=== PATIENT | male | born 1975 | race African-American/Black ===

== ENCOUNTER 2023-12-11 15:52 | Emergency (ER) | payer OTHER, SELFPAY ==
--- NOTE | 2023-12-11 17:25 | ER ---
Nurse's Notes [facility] Name: Brian Rodríguez Age: 48 yrs Sex: Male : 1975 Arrival Date: 12/11/2023 Time: 15:52 Bed IW10 Private MD: Diagnosis: Presentation: 12/10 16:12 Chief complaint: Patient states: "Issues with co parenting. Im confused. Its hard to nj1 think, focus, concentrate. Don't know what or who to believe" for a couple of years. Denies SI. Coronavirus screen: Vaccine status:. Ebola Screen: Patient denies travel to an Ebola-affected area in the 21 days before illness onset. Initial Sepsis Screen: Does the patient meet any 2 criteria? HR > 90 bpm. No. Patient's initial sepsis screen is negative. Does the patient have a suspected source of infection? No. Patient's initial sepsis screen is negative. Risk Assessment: Do you want to hurt yourself or someone else? Patient reports desire/thoughts of hurting themselves or someone else. Provider notified. Other: "My soon to be ex ". Onset of symptoms. 16:12 Method Of Arrival: Ambulatory [facility] 16:12 Acuity: BELG[place] 2 nj1 Historical: - Allergies: 16:19 No Known Allergies; nj1 - PMHx: 16:19 None; nj1 - Immunization history:: Client reports having NOT received the Covid vaccine. - Infectious Disease History:: Denies. - Social history:: Smoking status: Patient reports the use of cigarette tobacco products, smokes one pack cigarettes per day. - Family history:: not pertinent. - Hospitalizations: : No recent hospitalization is reported. Screenin:45 [facility] ED Fall Risk Assessment (Adult) History of falling in the last 3 months, dd2 including since admission No falls in past 3 months (0 pts) Confusion or Disorientation No (0 pts) Intoxicated or Sedated No (0 pts) Impaired Gait No (0 pts) Mobility Assist Device Used No (0 pt) Altered Elimination No (0 pt) Score/Fall Risk Level 0 - 2 = Low Risk. [facility] ED Fall Risk Assessment (Adult). [facility] ED Fall Risk Assessment (Adult). Abuse screen: Denies threats or abuse. Nutritional screening: No deficits noted. Tuberculosis screening: No symptoms or risk factors identified. Assessment: 16:45 General: Appears in no apparent distress. Behavior is cooperative, anxious. Pain: dd2 Denies pain. Neuro: No deficits noted. Cardiovascular: No deficits noted. Respiratory: No deficits noted. GI: No deficits noted. : No deficits noted. EENT: No deficits noted. Derm: No deficits noted. Musculoskeletal: No deficits noted. 17:20 Reassessment: ATTEMPTED TO COLLECT LABS FROM PT. HE REFUSED BLOOD DRAW STATING AGAINST dd2 BUDDHISM TO PLACE ANY FOREIGN BODY INTO HIM. REPORTED TO DR. PERALTA. 19:10 Reassessment: INSULTING NURSING STAFF, UNCOOPERATIVE, AND PATIENTS / PARTNER STATES ha1 " IT DOES MATTER WHATEVER HE SAID TO ME EARLY HE JUST NEEDS TO LEAVE WITH ME NOW". PROVIDED EDUCATION ON THE PLAN OF CARE AND IMPORTANCE TO CONTINUE CARE. EXPLAINED TO DUE TO SAFETY IT WAS OF BEST INTEREST FOR HER TO LEAVE THE PATIENTS ROOM. 19:10 General: Behavior is anxious, restless. ha1 19:18 Reassessment: Roro garrett called at 1918. ap3 19:18 General: PT STATED IF WE ARE NOT GOING TO STOP HIM HE IS GOING TO LEAVE. PT ASKS FOR vc1 BELONGINGS. I INFORMED PATIENT THAT THE HAS STATED HE IS A DANGER AND CANNOT LEAVE, THAT IF HE LEAVES I WILL HAVE TO NOTIFY THE POLICE DEPARTMENT. PT SPOUSE AT BEDSIDE STATES THEN TELL ME WHERE HIS BELONGINGS ARE AND I WILL GO GET THEM. SPOUSE BECOMING VERBALLY AGGRESSIVE AND ASKED TO LEAVE. AT THIS TIME PATIENT AND SPOUSE LEAVE. RORO MOYA CALLED. PT LEFT IN BLACK 4 DOOR [facility] LICENSE PLATE DSF [id number]. Psych: 19:00 Subjective: Patient's mood is angry, irritable. Objective: Patient is uncooperative. ha1 Interventions: Removed personal items and placed in bag. Patient placed in hospital gown. Searched person for dangerous items. Safety Checks: Personal items have been removed. 19:00 [place] Suicide Severity Screening: In the past month, have you wished you were ha1 or wished you could go to sleep and not wake up? Patient responds "No." "In the past month, have you actually had any thoughts of killing yourself?" Patient responds "no." "In your lifetime, have you ever done anything, started to do anything, or prepared to do anything to end your life?" Patient responds "no.". Vital Signs: 16:12 BP 131 / 84; Pulse 91; Resp 18; Temp 98.7(O); Pulse Ox 99% ; nj1 ED Course: 15:57 Patient arrived in ED. mg5 16:10 Rowdy Peralta MD is Attending Physician. rn 16:19 Triage completed. nj1 16:20 Arm band placed on left wrist. nj1 16:35 Ricki Martinez, RN is Primary Nurse. bp 16:45 No apparent distress. Safety Checks: Personal items have been removed. The door is open dd2 or patient has been placed in a hallway bed/chair. Sitter present at this time. 16:45 Patient has correct armband on for positive identification. Valuables inventory done. dd2 Locked in safe. See valuables checklist. 16:45 Provided Education on: LABS, EKG. dd2 16:45 No provider procedures requiring assistance completed. Patient did not have IV access dd2 during this emergency room visit. 18:54 initiated screening with [employer]. [facility] 19:00 eta 1 hour [place] [employer]. [facility] 19:17 contacted [facility] to speak to mental health about placing pt on [facility], pt ran out the [facility] facility contacted [facility]. Administered Medications: No medications were administered Medication: 19:30 VIS not applicable for this client. ha1 Outcome: 17:24 ER care complete, transfer ordered by . rn 21:35 Eloped from patient exam room, PT ELOPED, PD NOTIFIED vc1 21:35 Condition: stable 21:39 Patient left the ED. vc1 Signatures: Rowdy Peralta MD MD rn Peltier, Brian, RN RN bp Ida Friend RN GEOFF [email or web address] Sanjuana Bird RN RN vc1 Joi Yen RN RN ha1 Donna Carver RN RN nj1 Gardner, [place] mg5 Rosalia Collins [facility] SELIN TUCKER RN RN dd2 Corrections: (The following items were deleted from the chart) 0807 09:34 0806 19:10 Reassessment: INSULTING NURSING STAFF, UNCOOPERATIVE, AND PATIENTS / jl7 PARTNER STATES " IT DOES NOT MATTER WHATEVER HE SAID TO ME EARLY HE JUST NEEDS TO LEAVE WITH ME NOW". PROVIDED EDUCATION ON THE PLAN OF CARE AND IMPORTANCE TO CONTINUE CARE. EXPLAINED TO DUE TO SAFETY IT WAS OF BEST INTEREST FOR HER TO LEAVE THE PATIENTS ROOM ha1
--- NOTE | 2023-12-11 17:25 | EDPHYS ---
Physician Documentation [facility] Name: Brian Rodríguez Age: 48 yrs Sex: Male : 1975 Arrival Date: 12/11/2023 Time: 15:52 Bed IW10 Private MD: ED Physician Rowdy Peralta HPI: 12/10 16:32 This 48 yrs old Black Male presents to ER via Ambulatory with complaints of flame burner Problem. 16:32 The patient presents to the emergency department with homicidal ideation. Onset: The rn symptoms/episode began/occurred at an unknown time. Severity of symptoms: At their worst the symptoms were moderate in the emergency department the symptoms are unchanged. The patient has not experienced similar symptoms in the past. Patient reports going through a lot lately, he is not happy with his coparenting situation, does not have a specific plan but reports ideas to harm spouse or soon-to-be ex spouse. Denies drug use. Accompanied by 2 other either family or friends. No suicidal ideation.. Historical: - Allergies: 16:19 No Known Allergies; nj1 - PMHx: 16:19 None; nj1 - Immunization history:: Client reports having NOT received the Covid vaccine. - Infectious Disease History:: Denies. - Social history:: Smoking status: Patient reports the use of cigarette tobacco products, smokes one pack cigarettes per day. - Family history:: not pertinent. - Hospitalizations: : No recent hospitalization is reported. ROS: 16:32 Constitutional: Negative for fever, chills, and weight loss, Cardiovascular: Negative rn for chest pain, palpitations, and edema, Respiratory: Negative for shortness of breath, cough, wheezing, and pleuritic chest pain, Abdomen/GI: Negative for abdominal pain, nausea, vomiting, diarrhea, and constipation, Back: Negative for injury and pain, MS/Extremity: Negative for injury and deformity, Skin: Negative for injury, rash, and discoloration, Neuro: Negative for headache, weakness, numbness, tingling, and seizure, Psych: Positive for depression and anxiety with homicidal ideation Exam: 16:32 Constitutional: This is a well developed, well nourished patient who is awake, alert, rn and in no acute distress. Cardiovascular: Regular rate and rhythm. No pulse deficits. Respiratory: No increased work of breathing, no retractions or nasal flaring. Abdomen/GI: Soft, non-tender MS/ Extremity: Pulses equal, no cyanosis. Neuro: Awake and alert, GCS 15 18:05 ECG was reviewed by the Attending Physician. rn Vital Signs: 16:12 BP 131 / 84; Pulse 91; Resp 18; Temp 98.7(O); Pulse Ox 99% ; nj1 MDM: 16:10 Patient medically screened. rn 17:20 Differential diagnosis: depression, stress reaction, homicidal ideations. Data rn reviewed: vital signs, nurses notes. Counseling: I had a detailed discussion with the patient and/or guardian regarding the historical points, exam findings, and any diagnostic results supporting the discharge/admit diagnosis, the need for outpatient follow up, to return to the emergency department if symptoms worsen or persist or if there are any questions or concerns that arise at home. ED course: Pt reports had thought this morning of harming spouse, no longer having that thought and does not feel like is going to act on it, but believes he could benefit from psychiatric evaluation and help. . 18:53 ED course: Patient also conveyed that if he has not heard or takes care of his home rn life he would even consider suicide by transportation attendant. 12/10 16:25 Order name: Urinalysis w/ reflexes rn 12/10 16:25 Order name: Urine Drug Screen rn 12/10 16:25 Order name: EKG - Nurse/Tech; Complete Time: 17:46 rn 12/10 16:25 Order name: Suicide Precautions; Complete Time: 17:46 rn 12/10 16:25 Order name: Suicide Screening ([place]); Complete Time: 17:48 rn EC:05 Rate is 81 beats/min. Rhythm is regular. QRS [place] is Normal. LA interval is normal. QRS rn interval is normal. QT interval is normal. No Q waves. T waves are Normal. No ST changes noted. Clinical impression: NSR w/ Non-specific ST/T Changes. Interpreted by me. Reviewed by me. Administered Medications: No medications were administered Disposition Summary: 12/11/23 21:39 Eloped Notes: Disposition: post triage evaluation and consult vc1 Reason: (see nurse's notes)(12/11/23 21:39) vc1 Signatures: Dispatcher [employer] EDMS Rowdy Peralta MD MD rn Calcote, Vanessa, RN RN vc1 Donna Carver RN RN nj1 Corrections: (The following items were deleted from the chart) 17:07 17:07 ACETAMINOPHEN+C.LAB.BRZ ordered. EDMS EDMS 17:07 17:07 BASIC METABOLIC PANEL+C.LAB.BRZ ordered. EDMS EDMS 17: 17:07 CBC+H.LAB.BRZ ordered. EDMS EDMS 17: 17:07 ETHANOL+C.LAB.BRZ ordered. EDMS EDMS 17:07 17:07 HEPATIC FUNCTION+C.LAB.BRZ ordered. EDMS EDMS 17:07 17:07 PROTIME (+INR)+COAG.LAB.BRZ ordered. EDMS EDMS 17:07 17:07 PTT, ACTIVATED+COAG.LAB.BRZ ordered. EDMS EDMS 17:07 17:07 SALICYLATE+C.LAB.BRZ ordered. EDMS EDMS 17:07 17:07 Urinalysis+U.LAB.BRZ ordered. EDMS EDMS 17:07 17:07 URINE DRUG SCREEN+UC.LAB.BRZ ordered. EDMS EDMS 21:39 17:24 rn vc1 21:39 17:24 Psych Facility rn vc1 21:39 17:24 Higher level of care rn vc1 21:39 17:24 Stable rn vc1 21:39 17:24 new rn vc1 21:39 17:24 have improved rn vc1 21:39 17:24 Acute stress reaction rn vc1 21:39 17:24 Homicidal ideations rn vc1
[2023-12-11 17:40] LABS: Specific Gravity > 1.030 (1.005-1.030); Sqamous Epithelial None Seen /HPF (None Seen); Urine Bacteria None Seen /HPF (<20); Urine Bilirubin NEGATIVE (Negative); Urine Blood Negative (Negative); Urine Clarity Clear (Clear); Urine Color Yellow (Yellow); Urine Culture Reflex Order NOT NEEDED; Urine Glucose NEGATIVE (Negative); Urine Ketones NEGATIVE (Negative); Urine Microscopic Reflex YN ORDER UMIC; Urine Nitrite NEGATIVE (Negative); Urine Protein 1+ (Negative); Urine RBC <5 /HPF (None Seen); Urine Urobilinogen Normal (Normal); Urine WBC <5 /HPF (<5); Urine pH 6.5 (5.0-7.0)
[2023-12-11 17:45] LABS: Barbiturates NEGATIVE (NEGATIVE); Benzodiazepines NEGATIVE (NEGATIVE); Cocaine NEGATIVE (NEGATIVE); METHAMPHETAM NEGATIVE (NEGATIVE); Methadone NEGATIVE (NEGATIVE); Opiates NEGATIVE (NEGATIVE); Phencyclidine NEGATIVE (NEGATIVE); THC Cannibis NEGATIVE (NEGATIVE)
[2023-12-12 08:19] VITALS: BP 131/84; TEMP 98.7; O2SAT 99
--- NOTE | 2023-12-13 13:12 | EKG ---
Test Date: 2023-12-11 Test Time: 17:37:23 Sap Bw Architect: BALJINDER MEASUREMENT RESULTS: Intervals: Rate: 81 WV: 124 QRSD: 84 QT: 372 QTc: 432 Hardesty: P: 76 WV: 124 QRS: 45 T: 73 INTERPRETIVE STATEMENTS: Normal sinus rhythm with sinus arrhythmia Normal ECG No previous ECG available for comparison Electronically Signed On 12-13-23 13:06:13 CDT by Bernabe Harris
== END 2023-12-11 21:39 | disposition left against medical advice (07) ==
LOC: ER 15:52
DX: R45.850 Homicidal ideations (principal)
CPT/HCPCS: 80307; 81001; 93005; 99284